=== PATIENT | female | born 1970 | race Caucasian/White ===

== ENCOUNTER 2024-09-14 13:43 | Emergency (ER) | payer BC ==
--- NOTE | 2024-09-14 14:12 | ED ---
General Adult HPI - General Stated complaint: Abn Labs Time Seen by Provider: 09/14/24 14:08 Source: patient, RN notes reviewed - History of Present Illness Initial comments: 53 year old female presents to the emergency department for evaluation of fluid retention. She reports that she went to her PCP and was sent in after having xr and blood work preformed. Reports mild shortness of breath, denies chest pain. She reports lower extremity edema. She does note that she is on torsemide which she has been taking as prescribed. She does note that she recently had an increase in the dose. Denies any fever, chills, productive cough. - Related Data Allergies Allergy/AdvReac Type Severity Reaction Status Date / Time No Known Allergies Allergy Verified 09/14/24 14:10 Review of Systems ROS Statement: Those systems with pertinent positive or pertinent negative responses have been documented in the HPI. ROS Other: All systems not noted in ROS Statement are negative. General Exam Limitations: no limitations General appearance: alert, in no apparent distress Head exam: Present: atraumatic, normocephalic, normal inspection Eye exam: Present: normal appearance, PERRL, EOMI. Absent: scleral icterus, conjunctival injection, periorbital swelling ENT exam: Present: normal exam, mucous membranes moist Respiratory exam: Present: normal lung sounds bilaterally. Absent: respiratory distress, wheezes, rales, rhonchi, stridor Cardiovascular Exam: Present: regular rate, normal rhythm, normal heart sounds. Absent: systolic murmur, diastolic murmur, rubs, gallop, clicks GI/Abdominal exam: Present: soft, normal bowel sounds. Absent: distended, tenderness, guarding, rebound, rigid Extremities exam: Present: normal inspection, full ROM, normal capillary refill, pedal edema (1+ pitting edema). Absent: tenderness, joint swelling, calf tenderness Back exam: Present: normal inspection Neurological exam: Present: alert, oriented X3 Psychiatric exam: Present: normal affect, normal mood Skin exam: Present: warm, dry, intact, normal color. Absent: rash Course Vital Signs 09/14/24 09/14/24 09/14/24 14:07 14:15 16:15 Temperature 98.3 F 97.8 F Pulse Rate 80 82 Respiratory 20 18 19 Rate Blood Pressure 143/87 137/84 O2 Sat by Pulse 94 L 97 Oximetry Medical Decision Making - Medical Decision Making Quick note preformed and electronically signed by LUIGI Baker-C Was pt. sent in by a medical professional or institution (LUIGI Duffy, DIRECTOR E LEARNING, urgent care, hospital, or residential...) When possible be specific @ -No Did you speak to anyone other than the patient for history (EMS, parent, family, police, friend...)? What history was obtained from this source @ -No Did you review nursing and triage notes (agree or disagree)? Why? @ -I reviewed and agree with nursing and triage notes Were old charts reviewed (outside hosp., previous admission, EMS record, old EKG, old radiological studies, urgent care reports/EKG's, residential records)? Report findings @ -No old charts were reviewed Differential Diagnosis (chest pain, altered mental status, abdominal pain women, abdominal pain men, vaginal bleeding, weakness, fever, dyspnea, syncope, headache, dizziness, GI bleed, back pain, seizure, CVA, palpatations, mental health, musculoskeletal)? @ -CHF, liver disease, electrolyte imbalances, this list is not all inclusive EKG interpreted by me (3pts min.). @ -EKG@1432 shows sinus rhythm rate 79, NE 181, QRS 112, QT-QTc 399-434 X-rays interpreted by me (1pt min.). @ -Chest x-ray reveals no acute process CT interpreted by me (1pt min.). @ -None done U/S interpreted by me (1pt. min.). @ -None done What testing was considered but not performed or refused? (CT, X-rays, U/S, labs)? Why? @ -None What meds were considered but not given or refused? Why? @ -None Did you discuss the management of the patient with other professionals (professionals i.e. LUIGI Duffy, DIRECTOR E LEARNING, lab, RT, psych nurse, social media content manager, scrubber system attendant, teacher, chief credit officer, adult protective caseworker)? Give summary @ -No Was smoking cessation discussed for >3mins.? @ -No Was critical care preformed (if so, how long)? @ -No Were there social determinants of health that impacted care today? How? (Homelessness, low income, unemployed, alcoholism, drug addiction, transportation, low edu. Level, literacy, decrease access to med. care, senior care, rehab)? @ -No Was there de-escalation of care discussed even if they declined (Discuss DNR or withdrawal of care, Hospice)? DNR status @ -No What co-morbidities impacted this encounter? (DM, HTN, Smoking, COPD, CAD, Cancer, CVA, ARF, Chemo, Hep., AIDS, mental health diagnosis, sleep apnea, morbid obesity)? @ -None Was patient admitted / discharged? Hospital course, mention meds given and route, prescriptions, significant lab abnormalities, going to OR and other pertinent info. @ -Discharge. Patient presented emergency department for evaluation of fluid retention. Laboratory studies obtainedThere is no significant leukocytosis, hemoglobin 14.4; CMP is nonactionable, BNP 41. Chest x-ray reveals no acute process. I did order a dose of IV Lasix, the patient did have received this as the IV was pulled prior to her receiving the medication. Patient did receive an oral dose of medication. Patient will be discharged home advised follow-up to her primary care provider. She is understanding agreeable plan. Patient stable at time of discharge. Case discussed with Bandar Undiagnosed new problem with uncertain prognosis? @ -No Drug Therapy requiring intensive monitoring for toxicity (Heparin, Nitro, Insulin, Cardizem)? @ -No Were any procedures done? @ -No Diagnosis/symptom? @ -Fluid retention Acute, or Chronic, or Acute on Chronic? @ -Acute Uncomplicated (without systemic symptoms) or Complicated (systemic symptoms)? @ -Uncomplicated Side effects of treatment? @ -No Exacerbation, Progression, or Severe Exacerbation? @ -No Poses a threat to life or bodily function? How? (Chest pain, [place], [place], pneumonia, PE, COPD, DKA, ARF, appy, cholecystitis, CVA, Diverticulitis, Homicidal, Suicidal, threat to staff... and all critical care pts) @ -No - Lab Data Result diagrams: 09/14/24 14:30 09/14/24 14:30 Lab Results 09/14/24 09/14/24 Range/Units 14:30 14:30 WBC 9.03 (4.50-10.00) 10*3/uL RBC 4.77 (4.10-5.20) 10*6/uL Hgb 14.4 (12.0-15.0) g/dL Hct 43.2 (37.2-46.3) % MCV 90.6 (80.0-97.0) fL MCH 30.2 (27.0-32.0) pg MCHC 33.3 (32.0-37.0) g/dL Plt Count 290 (140-440) 10*3/uL MPV 9.5 (9.5-12.2) fL Immature Gran % (Auto) 0.4 % Neutrophils % 72.1 % Lymphocytes % 18.4 % Monocytes % 6.9 % Eosinophils % 1.8 % Basophils % 0.4 % Immature Gran # 0.04 (0.00-0.04) 10*3/uL Neutrophils # 6.51 (1.80-7.70) 10*3/uL Lymphocytes # 1.66 (0.90-5.00) 10*3/uL Monocytes # 0.62 (0.20-1.00) 10*3/uL Eosinophils # 0.16 (0.04-0.35) 10*3/uL Basophils # 0.04 (0.00-0.10) 10*3/uL Sodium 138 (137-145) mmol/L Potassium 4.0 (3.5-5.1) mmol/L Chloride 102 (98-107) mmol/L Carbon Dioxide 29 (22-30) mmol/L Anion Gap 7 mmol/L BUN 20 H (7-17) mg/dL Creatinine 0.72 (0.52-1.04) mg/dL Est GFR (CKD-EPI)AfAm >90 (>60 ml/min/1.73 sqM) Est GFR (CKD-EPI)NonAf >90 (>60 ml/min/1.73 sqM) Glucose 95 (74-99) mg/dL Calcium 9.9 (8.4-10.2) mg/dL Total Bilirubin 0.4 (0.2-1.3) mg/dL AST 22 (14-36) U/L ALT 16 (4-34) U/L Alkaline Phosphatase 83 (38-126) U/L NT-Pro-B Natriuret Pep 41 pg/mL Total Protein 6.9 (6.3-8.2) g/dL Albumin 4.1 (3.5-5.0) g/dL Disposition Clinical Impression: Fluid retention Disposition: HOME SELF-CARE Condition: Stable Additional Instructions: Please follow up with your doctor and cardiology. Return to the emergency department for new or worsening symptoms. Is patient prescribed a controlled substance at d/c from ED?: No Referrals: Wendi Allen NPC [REFERRING] - 1-2 days Dank Knight MD [STAFF PHYSICIAN] - 1-2 days
[2024-09-14 14:33] LABS: Basophils # (A) 0.04 10*3/uL (0.00-0.10); Basophils % (A) 0.4 %; Eosinophils # (A) 0.16 10*3/uL (0.04-0.35); Eosinophils % (A) 1.8 %; HCT 43.2 % (37.2-46.3); HGB 14.4 g/dL (12.0-15.0); Lymphocytes # (A) 1.66 10*3/uL (0.90-5.00); Lymphocytes % (A) 18.4 %; MCH 30.2 pg (27.0-32.0); MCHC 33.3 g/dL (32.0-37.0); MCV 90.6 fL (80.0-97.0); Mean Platelet Volume 9.5 fL (9.5-12.2); Monocytes # (A) 0.62 10*3/uL (0.20-1.00); Monocytes % (A) 6.9 %; Neutrophils # (A) 6.51 10*3/uL (1.80-7.70); Neutrophils % (A) 72.1 %; Platelet Count 290 10*3/uL (140-440); RBC 4.77 10*6/uL (4.10-5.20); RDW 12.8 % (11.5-14.5); WBC 9.03 10*3/uL (4.50-10.00)
--- NOTE | 2024-09-14 15:16 | XR ---
EXAMINATION TYPE: XR chest 2V DATE OF EXAM: 09/14/2024 3:10 PM COMPARISON: None. CLINICAL INDICATION: Female, 53 years old with history of shortness of breath, pain TECHNIQUE: 2 view(s) obtained. FINDINGS: The heart size is at the upper limits of normal. Pulmonary vasculature is normal. No suspicious filtr ates or consolidations evident. Osseous structures are unremarkable. IMPRESSION: 1. No acute pulmonary process. Follow-up can be performed as clinically indicated. [facility], , 09/14/2024 3:13 PM
[2024-09-14 15:31] LABS: ALT 16 U/L (4-34); AST 22 U/L (14-36); African American GFR (CKD) >90 (>60 ml/min/1.73 sqM); Albumin 4.1 g/dL (3.5-5.0); Alkaline Phosphatase 83 U/L (38-126); Anion Gap 7 mmol/L; Blood Urea Nitrogen 20 mg/dL (7-17); Calcium 9.9 mg/dL (8.4-10.2); Carbon Dioxide 29 mmol/L (22-30); Chloride 102 mmol/L (98-107); Glucose 95 mg/dL (74-99); Non-African American GFR(CKD) >90 (>60 ml/min/1.73 sqM); Sodium 138 mmol/L (137-145); Total Bilirubin 0.4 mg/dL (0.2-1.3); Total Protein 6.9 g/dL (6.3-8.2)
[2024-09-14 15:39] LABS: NT-Pro-B-Type Natriuretic Pept 41 pg/mL
[2024-09-14 16:18] VITALS: BP 137/84; PULSE 82; RESP 19; TEMP 97.8
[2024-09-14] MEDS: FUROSEMIDE 40 MG TAB PO STA (16:28)
[2024-09-14] MEDS: FUROSEMIDE 10 MG/ML 4 ML VIAL IV STA (16:29)
== END 2024-09-14 16:33 | disposition home or self-care (01) ==
LOC: EC 13:43
DX: R60.9 Edema, unspecified (principal)
CPT/HCPCS: 36415; 71046; 80053; 83880; 85025; 93005; 96374; 99284